=== PATIENT | female | born 1970 | race Caucasian/White ===

== ENCOUNTER 2018-07-19 11:52 | Outpatient (REF) | payer MEDICARE, MEDICAID, SELFPAY ==
[2018-07-19 22:22] LABS: HCT 40.5 % (36.0-46.0); HGB 13.4 g/dL (12.0-15.5); Mean Corp. HGB Concentration 33.1 g/dL (32.0-36.0); Mean Corpuscular Hemoglobin 30.7 pg (27.0-33.0); Mean Corpuscular Volume 92.9 fL (80-95); Mean Platelet Volume 10.7 fL (8.0-11.0); Platelet Count 262 x1000/uL (130-400); RBC 4.36 m/cumm (4.00-5.20); RBC Distribution Width 13.6 % (11.7-14.6)
[2018-07-19 22:47] LABS: Iron 69 ug/dL (50-175)
[2018-07-19 23:20] LABS: TSH 4.57 uIU/mL (0.358-3.74); Vitamin B12 315 pg/mL (193-986)
== END 2018-07-19 12:12 ==
LOC: NCHCN 11:52
PROVIDERS: PCP Nurse Practitioner Family; Visit Provider Nurse Practitioner Family
DX: E03.9 Hypothyroidism, unspecified (principal); R73.09 Other abnormal glucose; E53.8 Deficiency of other specified B group vitamins; D50.9 Iron deficiency anemia, unspecified
CPT/HCPCS: 85027; 82607; 83540; 84443

== ENCOUNTER 2018-09-27 13:13 | Outpatient (REF) | payer MEDICARE, MEDICAID, SELFPAY | END 2018-09-27 13:33 | LOC: NCHCN 13:13 | PROVIDERS: PCP Nurse Practitioner Family; Visit Provider Nurse Practitioner Family | DX: E03.9 Hypothyroidism, unspecified (principal) | CPT/HCPCS: 84443 ==

== ENCOUNTER 2019-06-19 22:43 | Outpatient (REF) | payer OTHER, MEDICAID, SELFPAY ==
[2019-06-19 21:22] LABS: HCT 42.1 % (36.0-46.0); HGB 14.4 g/dL (12.0-15.5); Mean Corp. HGB Concentration 34.2 g/dL (32.0-36.0); Mean Corpuscular Hemoglobin 32.3 pg (27.0-33.0); Mean Corpuscular Volume 94.4 fL (80-95); Mean Platelet Volume 10.5 fL (8.0-11.0); Platelet Count 261 x1000/uL (130-400); RBC 4.46 m/cumm (4.00-5.20); RBC Distribution Width 12.5 % (11.7-14.6); White Blood Cell Count 3.81 k/cumm (4.4-10.8)
[2019-06-19 21:39] LABS: ALT 90 U/L (14-59); AST 58 U/L (15-37); Albumin 4.2 g/dL (3.4-5.0); Alkaline Phosphatase 73 U/L (46-116); Anion Gap 8.4 mmol/L (3-11); BUN 12 mg/dL (7-18); Bilirubin, Total 0.6 mg/dL (0.2-1.0); CO2 28.6 mmol/L (21.0-32.0); CREATININE 0.84 mg/dL (0.55-1.02); Calcium 9.1 mg/dL (8.5-10.1); Chloride 107 mmol/L (98-107); Glucose 100 mg/dL (74-106); Lipase 129 U/L (73-393); Potassium 4.7 mmol/L (3.5-5.1); Sodium 144 mmol/L (136-145); TSH 0.15 uIU/mL (0.36-3.74); Total Protein 7.1 g/dL (6.4-8.2)
[2019-06-19 21:50] LABS: Hemoglobin A1C 5.9 % (3.8-5.6)
== END 2019-06-19 23:03 ==
LOC: NCHCN 22:43
PROVIDERS: PCP Nurse Practitioner Family; Visit Provider Nurse Practitioner Family
DX: E03.9 Hypothyroidism, unspecified (principal); R73.09 Other abnormal glucose; R10.11 Right upper quadrant pain; D50.9 Iron deficiency anemia, unspecified
CPT/HCPCS: 80053; 83690; 85027; 83036; 84443; 85610

== ENCOUNTER 2019-08-21 08:30 | Outpatient (REF) | payer OTHER, MEDICAID, SELFPAY ==
[2019-08-21 21:00] LABS: TSH 8.46 uIU/mL (0.36-3.74)
== END 2019-08-21 08:50 ==
LOC: NCHCN 08:30
PROVIDERS: PCP Nurse Practitioner Family; Visit Provider Nurse Practitioner Family
DX: E03.9 Hypothyroidism, unspecified (principal)
CPT/HCPCS: 84443

== ENCOUNTER 2019-10-20 10:54 | Outpatient (REF) | payer OTHER, MEDICAID, SELFPAY ==
[2019-10-20 21:50] LABS: TSH 1.05 uIU/mL (0.36-3.74)
== END 2019-10-20 11:14 ==
LOC: NCHCN 10:54
PROVIDERS: PCP Nurse Practitioner Family; Visit Provider Nurse Practitioner Family
DX: E03.9 Hypothyroidism, unspecified (principal)
CPT/HCPCS: 84443

== ENCOUNTER 2020-02-15 11:34 | Outpatient (REF) | payer OTHER, MEDICAID, SELFPAY ==
[2020-02-15 21:40] LABS: Hemoglobin A1C 5.6 % (<5.7)
[2020-02-15 22:04] LABS: Calculated LDL 106 mg/dL (<100); Cholesterol 189 mg/dL (<200); HDL Cholesterol 43 mg/dL (40-60); Magnesium 2.1 mg/dL (1.8-2.4); Triglyceride 201 mg/dL (<150); Vitamin B12 319 pg/mL (193-986)
== END 2020-02-15 11:54 ==
LOC: NCHCN 11:34
PROVIDERS: PCP Nurse Practitioner Family; Visit Provider Nurse Practitioner Family
DX: E78.5 Hyperlipidemia, unspecified (principal); R73.03 Prediabetes
CPT/HCPCS: 80061; 82607; 83036; 83735

== ENCOUNTER 2020-03-15 18:30 | Outpatient (REF) | payer OTHER, MEDICAID, SELFPAY ==
[2020-03-15 22:15] LABS: Absolute Basophil Count 0.03 10^3/uL (0.0-0.2); Absolute Eosinophil Count 0.17 10^3/uL (0.0-0.7); Absolute Lymphocyte Count 1.89 10^3/uL (1.2-3.4); Absolute Monocyte Count 0.35 10^3/uL (0.1-0.8); Absolute Neutrophil Count 2.14 10^3/uL (1.2-6.7); Basophils % 0.7; Eosinophils % 3.7; HCT 42.1 % (36.0-46.0); HGB 14.7 g/dL (11.2-15.7); Lymphocytes % 41.3; MCH 32.9 pg (27.0-33.0); MCHC 34.9 % (32.0-36.0); MCV 94.2 fL (80-95); MPV 10.3 fL (8.0-11.0); Monocytes % 7.6; Neutrophils % 46.7; Nucleated RBC 0 %; Platelet Count 240 10^3/uL (130-400); RBC 4.47 10^6/uL (3.93-5.22); RDW-SD 41.4 fL; WBC 4.58 10^3/uL (4.4-10.8)
[2020-03-15 22:34] LABS: ALT 51 U/L (14-59); AST 36 U/L (15-37); Albumin 4.4 g/dL (3.4-5.0); Alkaline Phosphatase 71 U/L (46-116); Anion Gap 7.4 mmol/L (3-11); BUN 11 mg/dL (7-18); Bilirubin, Total 0.6 mg/dL (0.2-1.0); CO2 30.6 mmol/L (21.0-32.0); CREATININE 0.93 mg/dL (0.55-1.02); Calcium 9.4 mg/dL (8.5-10.1); Chloride 104 mmol/L (98-107); Glucose 104 mg/dL (74-106); Potassium 4.4 mmol/L (3.5-5.1); Sodium 142 mmol/L (136-145); TSH 0.57 uIU/mL (0.36-3.74); Total Protein 7.4 g/dL (6.4-8.2)
== END 2020-03-15 18:50 ==
LOC: NCHCN 18:30
PROVIDERS: PCP Nurse Practitioner Family; Visit Provider Family Medicine
DX: E03.9 Hypothyroidism, unspecified (principal); R42 Dizziness and giddiness; K75.81 Nonalcoholic steatohepatitis (NASH); E66.9 Obesity, unspecified
CPT/HCPCS: 80053; 84443; 85025

== ENCOUNTER 2020-09-19 12:21 | Outpatient (REF) | payer OTHER, MEDICAID, SELFPAY ==
[2020-09-19 21:10] LABS: Abs Immature Grans 0.01 10^3/uL (0.0-0.06); Absolute Basophil Count 0.03 10^3/uL (0.0-0.2); Absolute Eosinophil Count 0.15 10^3/uL (0.0-0.7); Absolute Lymphocyte Count 1.71 10^3/uL (1.2-3.4); Absolute Neutrophil Count 2.18 10^3/uL (1.2-6.7); Basophils % 0.7; Eosinophils % 3.3; HCT 43.1 % (36.0-46.0); HGB 14.6 g/dL (11.2-15.7); Immature Grans % 0.2; Lymphocytes % 38.2; MCH 32.4 pg (27.0-33.0); MCHC 33.9 % (32.0-36.0); MCV 95.8 fL (80-95); Monocytes % 8.9; Neutrophils % 48.7; Nucleated RBC 0 %; Platelet Count 248 10^3/uL (130-400); RDW 12.1 % (11.7-14.6); RDW-SD 42.1 fL; WBC 4.48 10^3/uL (4.4-10.8)
[2020-09-19 21:40] LABS: Vitamin D 25 Total 30.4 ng/mL (30-100)
[2020-09-19 21:51] LABS: ALT 52 U/L (14-59); AST 33 U/L (15-37); Albumin 4.4 g/dL (3.4-5.0); Alkaline Phosphatase 83 U/L (46-116); Anion Gap 7.2 mmol/L (3-11); BUN 13 mg/dL (7-18); Bilirubin, Total 0.6 mg/dL (0.2-1.0); CO2 28.8 mmol/L (21.0-32.0); CREATININE 0.9 mg/dL (0.55-1.02); Chloride 106 mmol/L (98-107); Glucose 96 mg/dL (74-106); Lipase 141 U/L (73-393); Potassium 4.3 mmol/L (3.5-5.1); Sodium 142 mmol/L (136-145); TSH 0.99 uIU/mL (0.36-3.74); Total Protein 7.5 g/dL (6.4-8.2)
[2020-09-19 22:05] LABS: Calcium 9.3 mg/dL (8.5-10.1); Calculated LDL 152 mg/dL (<100); Cholesterol 245 mg/dL (<200); HDL Cholesterol 47 mg/dL (40-60); Triglyceride 231 mg/dL (<150)
[2020-09-23 09:38] LABS: Hemoglobin A1C 5.7 % (<5.7)
== END 2020-09-19 12:22 | disposition home or self-care (01) ==
LOC: NCHCN 12:21
PROVIDERS: PCP Nurse Practitioner Family; Visit Provider Family Medicine
DX: R73.03 Prediabetes (principal); E03.9 Hypothyroidism, unspecified; E63.8 Other specified nutritional deficiencies; E55.9 Vitamin D deficiency, unspecified; R10.12 Left upper quadrant pain; R53.83 Other fatigue
CPT/HCPCS: 80053; 80061; 82306; 83690; 83036; 84443; 85025

== ENCOUNTER 2021-03-20 13:35 | Outpatient (REF) | payer MEDICARE, MEDICAID, SELFPAY ==
[2021-03-20 17:29] LABS: TSH 1.54 uIU/mL (0.36-3.74)
== END 2021-03-20 13:36 | disposition home or self-care (01) ==
LOC: NCHCN 13:35
PROVIDERS: PCP Nurse Practitioner Family; Visit Provider Family Medicine
DX: E03.9 Hypothyroidism, unspecified (principal)
CPT/HCPCS: 84443

== ENCOUNTER 2021-05-20 18:56 | Outpatient (REF) | payer MEDICARE, MEDICAID, SELFPAY ==
[2021-05-21 01:56] LABS: COVID-19 RT-PCR UVMMC Result Negative (Negative)
== END 2021-05-20 18:57 | disposition home or self-care (01) ==
LOC: NCHCN 18:56
PROVIDERS: PCP Nurse Practitioner Family; Visit Provider Family Medicine
DX: Z20.822 Contact with and (suspected) exposure to COVID-19 (principal); J06.9 Acute upper respiratory infection, unspecified
CPT/HCPCS: U0003; U0005

== ENCOUNTER 2021-08-07 08:03 | Outpatient (REF) | payer MEDICARE, MEDICAID, SELFPAY ==
[2021-08-07 16:06] LABS: Hemoglobin A1C 5.9 % (<5.7)
[2021-08-07 16:25] LABS: Vitamin D 25 Total 29.5 ng/mL (30-100)
[2021-08-07 16:28] LABS: ALT 66 U/L (14-59); AST 33 U/L (15-37); Alkaline Phosphatase 92 U/L (46-116); Anion Gap 11.7 mmol/L (3-11); BUN 15 mg/dL (7-18); Bilirubin, Total 0.4 mg/dL (0.2-1.0); CO2 24.3 mmol/L (21.0-32.0); CREATININE 0.8 mg/dL (0.55-1.02); Calcium 9.2 mg/dL (8.5-10.1); Calculated LDL 214 mg/dL (<100); Chloride 107 mmol/L (98-107); Cholesterol 293 mg/dL (<200); Glucose 98 mg/dL (74-106); HDL Cholesterol 43 mg/dL (40-60); Potassium 4.2 mmol/L (3.5-5.1); Sodium 143 mmol/L (136-145); TSH 2.15 uIU/mL (0.36-3.74); Triglyceride 184 mg/dL (<150); Vitamin B12 311 pg/mL (193-986)
== END 2021-08-07 08:04 | disposition home or self-care (01) ==
LOC: NCHCN 08:03
PROVIDERS: PCP Nurse Practitioner Family; Visit Provider Family Medicine
DX: R73.03 Prediabetes (principal); F41.8 Other specified anxiety disorders; E53.8 Deficiency of other specified B group vitamins; E55.9 Vitamin D deficiency, unspecified; E66.9 Obesity, unspecified; E03.9 Hypothyroidism, unspecified
CPT/HCPCS: 80053; 80061; 82306; 82607; 83036; 84443

== ENCOUNTER 2021-09-15 19:10 | Outpatient (REF) | payer MEDICARE, MEDICAID, SELFPAY ==
[2021-09-15 17:14] LABS: Calculated LDL 95 mg/dL (<100); Cholesterol 159 mg/dL (<200); HDL Cholesterol 44 mg/dL (40-60); Triglyceride 102 mg/dL (<150)
== END 2021-09-15 19:11 | disposition home or self-care (01) ==
LOC: NCHCN 19:10
PROVIDERS: Family Medicine; PCP Nurse Practitioner Family; Visit Provider Nurse Practitioner Family
DX: E78.5 Hyperlipidemia, unspecified (principal)
CPT/HCPCS: 80061